=== PATIENT | male | born 1970 | race Caucasian/White ===

== ENCOUNTER 2020-03-22 04:47 | Emergency (ER) | payer OTHER ==
[2020-03-22 05:19] VITALS: PULSE 53
[2020-03-22] MEDS ORDERED: GELATIN SPONGE,ABSORB (SMALL) 1 EACH SPONGE TOPICAL STA (05:40)
[2020-03-22] MEDS ORDERED: DIPH,PERTUS(ACELL)TETVAC-LF 0.5 ML VIAL IM ONE (05:40)
--- NOTE | 2020-03-22 05:53 | ED ---
Wound/Laceration HPI - General Chief Complaint: Wound/Laceration Stated Complaint: thumb lac Time Seen by Provider: 03/22/20 05:39 Source: patient Mode of arrival: ambulatory Limitations: no limitations - History of Present Illness Initial Comments: 49yo male with no PMH presenting today for cc of right thumb avulsion. Pt states last night he was peeling beets when he sliced his thumb tip. States it continues to ooze blood. Patient states when bleeding persisted this morning he came in for bleeding control states no laceration for repair. Denies weakness, lightheaded, dizziness. Patient unsure of last tdap feels it is out of date. Appears well on arrival, no acute distress. - Related Data Home Medications Medication Instructions Recorded Confirmed Cetirizine HCl [Zyrtec] 10 mg PO DAILY 01/19/14 01/25/14 Fish Oil/Dha/Epa [Fish Oil 1,200 1 each PO DAILY 01/19/14 01/19/14 mg Fish Oil] Hydrocodone/Acetaminophen 1 each PO Q6HR PRN 01/19/14 01/25/14 [Hydrocodone/Acetaminophen 7.5-325] INSULIN ASPART (NovoLOG) [NovoLOG] 0 unit SQ DIRECTED 01/19/14 01/25/14 Ibuprofen [Advil] 200 mg PO Q8HR PRN 01/19/14 01/19/14 Multivitamins, Thera [Multivitamin] 1 each PO DAILY 01/19/14 01/19/14 Omeprazole [PriLOSEC] 20 mg PO AC-BRKFST 01/19/14 01/25/14 Previous Rx's Medication Instructions Recorded HYDROcodone/APAP 7.5-325MG [[address] 1 - 2 each PO Q6HR PRN #40 tab 01/25/14 7.5] Allergies Allergy/AdvReac Type Severity Reaction Status Date / Time Penicillins Allergy Unknown Rash/Hives Verified 03/22/20 05:20 naproxen sodium [From Aleve] AdvReac Unknown Abdominal Verified 03/22/20 05:20 Pain Review of Systems ROS Statement: Those systems with pertinent positive or pertinent negative responses have been documented in the HPI. ROS Other: All systems not noted in ROS Statement are negative. Past Medical History Past Medical History: Diabetes Mellitus, GERD/Reflux History of Any Multi-Drug Resistant Organisms: None Reported Past Surgical History: Orthopedic Surgery Additional Past Surgical History / Comment(s): ARTHROSCOPY RT SHOULDER Past Anesthesia/Blood Transfusion Reactions: No Reported Reaction, Motion Sickness Past Psychological History: No Psychological Hx Reported Smoking Status: Never smoker Past Alcohol Use History: None Reported Past Drug Use History: None Reported General Exam - General Exam Comments Initial Comments: General: The patient is awake and alert, in no distress, and does not appear acutely ill. Eye: Pupils are equal, round and reactive to light, extra-ocular movements are intact. No nystagmus. There is normal conjunctiva bilaterally. No signs of icterus. Musculoskeletal: Right thumb avulsion 3/4cm small bleeding capillary. Normal ROM, no tenderness. Strength 5/5. Sensation intact. Radial pulses equal bilaterally 2+. Neurological: A&O x 3. CN II-XII intact grossly, There are no obvious motor or sensory deficits. Coordination appears grossly intact. Speech is normal. Skin: Skin is warm and dry and no rashes or lesions are noted. Psychiatric: Cooperative, appropriate mood & affect, normal judgment. Limitations: no limitations Course Vital Signs 03/22/20 03/22/20 05:15 06:49 Temperature 97.8 F 97.4 F L Pulse Rate 53 L 53 L Respiratory 17 16 Rate Blood Pressure 116/74 114/74 O2 Sat by Pulse 100 98 Oximetry Medical Decision Making - Medical Decision Making 49yo female presenting to the ER for skin avulsion. gelfoam applied. Bleeding controlled on reevaluation. Asymptomatic. Patient tdap updated. Discharged with return parameters. Disposition Clinical Impression: Avulsion of skin of finger Disposition: HOME SELF-CARE Condition: Good Instructions (If sedation given, give patient instructions): Skin Avulsion (ED) Additional Instructions: Please use medication as discussed. Please follow-up with family doctor in the next 2 days. Please return to emergency room if the symptoms increase or worsen or for any other concerns. Is patient prescribed a controlled substance at d/c from ED?: No Referrals: None,Stated [Primary Care Provider] - 1-2 days Time of Disposition: 05:53
[2020-03-22] MEDS ORDERED: SILVER NITRATE APPLICATOR 1 EACH STICK..EA. TOPICAL STA (06:30)
[2020-03-22 06:52] VITALS: BP 114/74; RESP 16; TEMP 97.4
== END 2020-03-22 06:49 | disposition home or self-care (01) ==
LOC: EC 04:47
DX: S61.011A Laceration without foreign body of right thumb without damage to nail, initial encounter (principal); E11.9 Type 2 diabetes mellitus without complications; K21.9 Gastro-esophageal reflux disease without esophagitis; Z79.4 Long term (current) use of insulin; Z79.899 Other long term (current) drug therapy; Z88.0 Allergy status to penicillin; Z88.6 Allergy status to analgesic agent; Z23 Encounter for immunization; W27.4XXA Contact with kitchen utensil, initial encounter; Y93.G3 Activity, cooking and baking; Y92.009 Unspecified place in unspecified non-institutional (private) residence as the place of occurrence of the external cause
CPT/HCPCS: 90471; 90715; 99282

== ENCOUNTER → 2021-11-14 | Outpatient (CLI) | payer OTHER ==
[~2021-11-14] MED LIST: BEBTELOVIMAB (EUA) 175 MG/2 ML VIAL IV NR; SODIUM CHLORIDE 0.9% 500 ML 500 ML in EMPTY BAG 1 BAG IV PRN
[2021-11-14 13:24] VITALS: RESP 16
[2021-11-14 13:31] VITALS: TEMP 98.5
[2021-11-14 14:23] VITALS: BP 114/69; PULSE 65
== END ==
LOC: PROCWHC3 12:52
PROVIDERS: ATTEND Physician Assistant Medical
DX: U07.1 COVID-19 (principal); Z88.0 Allergy status to penicillin; Z88.8 Allergy status to other drugs, medicaments and biological substances; E10.9 Type 1 diabetes mellitus without complications; Z88.1 Allergy status to other antibiotic agents; Z91.041 Radiographic dye allergy status
CPT/HCPCS: Q0222; M0222; 96374

== ENCOUNTER → 2022-05-12 | Outpatient (CLI) | payer OTHER ==
[2022-05-12 13:12] LABS: African American GFR (CKD) 115.8 (60.0-200.0); Albumin 4.3 g/dL (3.8-4.9); Albumin/Globulin Ratio 2.15 (1.60-3.17); BUN/Creat Ratio 18.89 Ratio (12.00-20.00); Calcium 9.2 mg/dL (8.7-10.3); HDL Cholesterol 97.4 mg/dL (40.00-60.00); Non-African American GFR(CKD) 99.9 (60.0-200.0); Total Bilirubin 0.6 mg/dL (0.30-1.20); Total Protein 6.3 g/dL (6.2-8.2); Triglycerides 39.1 mg/dL (0.00-149.00)
[2022-05-12 13:22] LABS: Chol/HDL Ratio 2.22 Ratio
[2022-05-12 20:30] LABS: Microalbumin Creatinine Ratio <30 mg/g Creat (0-30)
== END | disposition home or self-care (01) ==
LOC: LABWHC1 08:11
PROVIDERS: ATTEND Internal Medicine Endocrinology, Diabetes & Metabolism
DX: E10.65 Type 1 diabetes mellitus with hyperglycemia (principal)
CPT/HCPCS: 36415; 80053; 80061; 82043; 82570; 83036; 83721; 84443

== ENCOUNTER → 2022-08-20 | Outpatient (CLI) | payer OTHER ==
[2022-08-20 11:18] LABS: ALT 20 U/L (10-49); AST 19 U/L (14-35); African American GFR (CKD) 115.8 (60.0-200.0); Albumin 4.2 g/dL (3.8-4.9); Alkaline Phosphatase 90 U/L (41-126); BUN/Creat Ratio 14.67 Ratio (12.00-20.00); Blood Urea Nitrogen 13.2 mg/dL (9.0-27.0); Carbon Dioxide 30.9 mmol/L (20.0-27.5); Chloride 102 mmol/L (96-109); Chol/HDL Ratio 2.42 Ratio; Glucose 217 mg/dL (70-110); LDL Cholesterol,Calculated 109.1 mg/dL (0.0-131.0); Non-African American GFR(CKD) 99.9 (60.0-200.0); Sodium 138 mmol/L (135-145); Total Protein 6.2 g/dL (6.2-8.2)
[2022-08-20 20:21] LABS: Microalbumin Creatinine Ratio <30 mg/g Creat (0-30)
== END | disposition home or self-care (01) ==
LOC: LABWHC1 07:46
PROVIDERS: ATTEND Internal Medicine Endocrinology, Diabetes & Metabolism
DX: E10.65 Type 1 diabetes mellitus with hyperglycemia (principal)
CPT/HCPCS: 36415; 80053; 80061; 82043; 82570; 83036; 84443

== ENCOUNTER → 2022-11-17 | Outpatient (CLI) | payer OTHER ==
[2022-11-17 13:31] LABS: ALT 29 U/L (10-49); AST 22 U/L (14-35); African American GFR (CKD) 109.2 (60.0-200.0); Albumin 4.6 g/dL (3.8-4.9); Albumin/Globulin Ratio 2.31 (1.60-3.17); Alkaline Phosphatase 119 U/L (41-126); BUN/Creat Ratio 21.27 Ratio (12.00-20.00); Blood Urea Nitrogen 20.1 mg/dL (9.0-27.0); Calcium 9.5 mg/dL (8.7-10.3); Carbon Dioxide 27.6 mmol/L (20.0-27.5); Chloride 105 mmol/L (96-109); Chol/HDL Ratio 2.28 Ratio; Glucose 157 mg/dL (70-110); LDL Cholesterol,Calculated 117.7 mg/dL (0.0-131.0); Non-African American GFR(CKD) 94.2 (60.0-200.0); Potassium 4.8 mmol/L (3.5-5.5); Sodium 140 mmol/L (135-145); Total Protein 6.6 g/dL (6.2-8.2); VLDL Calculation 8.98 mg/dL (5.00-40.00)
[2022-11-18 13:23] LABS: Microalbumin Creatinine Ratio <30 mg/g Creat (0-30)
== END | disposition home or self-care (01) ==
LOC: LABWHC1 09:07
PROVIDERS: ATTEND Internal Medicine Endocrinology, Diabetes & Metabolism
DX: E10.65 Type 1 diabetes mellitus with hyperglycemia (principal)
CPT/HCPCS: 36415; 80053; 80061; 82043; 82570; 83036; 84443

== ENCOUNTER 2023-07-20 12:22 | Emergency (ER) | payer OTHER ==
--- NOTE | 2023-07-20 12:30 | ED ---
General Adult HPI - General Stated complaint: Lt hand injury Time Seen by Provider: 07/20/23 12:28 Source: patient, RN notes reviewed - History of Present Illness Initial comments: 52 year old male presents to the emergency department for evaluation of left index finger injury. 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 Last tetanus around 3 years ago. He reports full range of motion to the finger. - Related Data Home Medications Medication Instructions Recorded Confirmed Cetirizine HCl [Zyrtec] 10 mg PO DAILY 01/19/14 11/14/21 Fish Oil/Dha/Epa [Fish Oil 1,200 1 each PO DAILY 01/19/14 11/14/21 mg Fish Oil] INSULIN ASPART (NovoLOG) [NovoLOG] 0 unit SQ DIRECTED 01/19/14 11/14/21 Multivitamins, Thera [Multivitamin] 1 each PO DAILY 01/19/14 11/14/21 Glucosamine Sulfate 1,000 mg PO DAILY 11/14/21 11/14/21 Niacin 500 mg PO BID 11/14/21 11/14/21 Allergies Allergy/AdvReac Type Severity Reaction Status Date / Time Penicillins Allergy Unknown Rash/Hives Verified 11/14/21 13:02 naproxen sodium [From Aleve] AdvReac Unknown Abdominal Verified 11/14/21 13:02 Pain cephalexin [From Keflex] AdvReac Abdominal Verified 11/14/21 13:03 Pain clarithromycin [From Biaxin] AdvReac Abdominal Verified 11/14/21 13:02 Pain Vfobilf-[id number]-FtX Reductase AdvReac Unknown Verified 11/14/21 13:03 Inhibitor lodine AdvReac Abdominal Uncoded 11/14/21 13:02 Pain Review of Systems ROS Statement: Those systems with pertinent positive or pertinent negative responses have been documented in the HPI. ROS Other: All systems not noted in ROS Statement are negative. Past Medical History Past Medical History: Diabetes Mellitus, GERD/Reflux History of Any Multi-Drug Resistant Organisms: None Reported Past Surgical History: Orthopedic Surgery Additional Past Surgical History / Comment(s): ARTHROSCOPY RT SHOULDER Past Anesthesia/Blood Transfusion Reactions: No Reported Reaction, Motion Sickness Past Psychological History: No Psychological Hx Reported Smoking Status: Never smoker Past Alcohol Use History: None Reported Past Drug Use History: None Reported General Exam - General Exam Comments Initial Comments: Visual Physical Exam Vital signs reviewed General: Well-appearing, nontoxic, no acute distress. Head: Normocephalic, atraumatic Eyes: PERRLA, EOMI ENT: Airway patent Chest: Nonlabored breathing Skin: No visual rash, normal skin tone Neuro: Alert and oriented 3 Musculoskeletal: No gross abnormalities Limitations: no limitations General appearance: alert, in no apparent distress Head exam: Present: atraumatic, normocephalic, normal inspection Eye exam: Present: normal appearance, PERRL, EOMI. Absent: scleral icterus, conjunctival injection, periorbital swelling ENT exam: Present: normal exam, mucous membranes moist Respiratory exam: Present: normal lung sounds bilaterally. Absent: respiratory distress, wheezes, rales, rhonchi, stridor Cardiovascular Exam: Present: regular rate, normal rhythm, normal heart sounds. Absent: systolic murmur, diastolic murmur, rubs, gallop, clicks Extremities exam: Present: full ROM, normal capillary refill, other (Left second digit) Neurological exam: Present: alert, oriented X3 Psychiatric exam: Present: normal affect, normal mood Skin exam: Present: warm, dry, other (1 centimeter laceration to the lateral aspect second digit of the left hand). Absent: intact Course Vital Signs 07/20/23 12:27 Temperature 98 F Pulse Rate 63 Respiratory 16 Rate Blood Pressure 135/81 O2 Sat by Pulse 98 Oximetry Procedures - Laceration Laceration #1 Consent Obtained: verbal consent Indication: laceration Site: hand Size (cm): 1 Description: linear Depth: simple, single layer Anesthetic Used: lidocaine 1% Anesthesia Technique: local infiltration Pre-repair: wound explored, irrigated extensively Type of Sutures: other Size of Sutures: 5-0 Number of Sutures: 2 Technique: simple, interrupted Patient Tolerated Procedure: well, no complications Medical Decision Making - Medical Decision Making Was pt. sent in by a medical professional or institution (, [place], [employer], urgent care, hospital, or senior care...) When possible be specific @ -No Did you speak to anyone other than the patient for history (EMS, parent, family, police, friend...)? What history was obtained from this source @ -No Did you review nursing and triage notes (agree or disagree)? Why? @ -I reviewed and agree with nursing and triage notes Were old charts reviewed (outside hosp., previous admission, EMS record, old EKG, old radiological studies, urgent care reports/EKG's, senior care records)? Report findings @ -No old charts were reviewed Differential Diagnosis (chest pain, altered mental status, abdominal pain women, abdominal pain men, vaginal bleeding, weakness, fever, dyspnea, syncope, headache, dizziness, GI bleed, back pain, seizure, CVA, palpatations, mental health, musculoskeletal)? @ -Differential Musculoskeletal Muscular strain, contusion, ligament sprain, fracture, arthritis, septic arthritis, bursitis, cellulitis, muscle spasm, nerve compression, DVT, arterial occlusion, herpes zoster, electrolyte abnormality, tumor.... This is not meant to be in all inclusive list EKG interpreted by me (3pts min.). @ -None X-rays interpreted by me (1pt min.). @ -X-ray of the left second digit shows no acute fracture or foreign body CT interpreted by me (1pt min.). @ -None done U/S interpreted by me (1pt. min.). @ -None done What testing was considered but not performed or refused? (CT, X-rays, U/S, labs)? Why? @ -None What meds were considered but not given or refused? Why? @ -None Did you discuss the management of the patient with other professionals (professionals i.e. , PA, [employer], lab, RT, psych nurse, social media specialist, building drafting officer, teacher, medical information officer, rn field case manager)? Give summary @ -No Was smoking cessation discussed for >3mins.? @ -No Was critical care preformed (if so, how long)? @ -No Were there social determinants of health that impacted care today? How? (Homelessness, low income, unemployed, alcoholism, drug addiction, transportation, low edu. Level, literacy, decrease access to med. care, halfway, rehab)? @ -No Was there de-escalation of care discussed even if they declined (Discuss DNR or withdrawal of care, Hospice)? DNR status @ -No What co-morbidities impacted this encounter? (DM, HTN, Smoking, COPD, CAD, Cancer, CVA, ARF, Chemo, Hep., AIDS, mental health diagnosis, sleep apnea, morbid obesity)? @ -None Was patient admitted / discharged? Hospital course, mention meds given and route, prescriptions, significant lab abnormalities, going to OR and other pertinent info. @ -Charge. Patient presented to the emergency department for laceration of left second digit. Wound was irrigated and 2 sutures were placed. X-ray obtained shows no acute fracture or foreign body. Advised patient on wound care. Patient up-to-date on his tetanus vaccination. Patient discharged home. Case discussed with Dr. Matamoros Undiagnosed new problem with uncertain prognosis? @ -No Drug Therapy requiring intensive monitoring for toxicity (Heparin, Nitro, Insulin, Cardizem)? @ -No Were any procedures done? @ -No Diagnosis/symptom? @ -laceration Acute, or Chronic, or Acute on Chronic? @ -acute Uncomplicated (without systemic symptoms) or Complicated (systemic symptoms)? @ uncomplicated Side effects of treatment? @ -No Exacerbation, Progression, or Severe Exacerbation? @ -No Poses a threat to life or bodily function? How? (Chest pain, [place], PA, pneumonia, PE, COPD, DKA, ARF, appy, cholecystitis, CVA, Diverticulitis, Homicidal, Suicidal, threat to staff... and all critical care pts) @ -No Disposition Clinical Impression: Laceration Disposition: HOME SELF-CARE Condition: Stable Instructions (If sedation given, give patient instructions): Care For Your S titches (ED) Additional Instructions: Please have sutures removed in 7-10 days. Keep wound clean and dry. Follow up with your primary care provider. Return to the emergency department for new or worsening symptoms. Is patient prescribed a controlled substance at d/c from ED?: No Referrals: None,Stated [Primary Care Provider] - 1-2 days
[2023-07-20 12:42] VITALS: BP 135/81; PULSE 63; RESP 16; TEMP 98
--- NOTE | 2023-07-20 13:17 | XR ---
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 COMPARISON: None TECHNIQUE: XR finger LT Frontal, lateral and oblique views were obtained. FINDINGS: Normal alignment of the visualized joints. No acute osseous pathology is identified. No e vidence of soft tissue swelling. No radiopaque foreign body. IMPRESSION: No acute osseous pathology. No radiopaque foreign body.
[2023-07-20] MEDS ORDERED: LIDOCAINE 1% INJ 10MG/ML (20 ML MDV) SQ ONE (13:26)
== END 2023-07-20 14:17 | disposition home or self-care (01) ==
LOC: EC 12:22
DX: S61.211A Laceration without foreign body of left index finger without damage to nail, initial encounter (principal); E11.9 Type 2 diabetes mellitus without complications; Z79.4 Long term (current) use of insulin; Z79.899 Other long term (current) drug therapy; Z88.0 Allergy status to penicillin; Z88.5 Allergy status to narcotic agent; Z88.8 Allergy status to other drugs, medicaments and biological substances; W26.9XXA Contact with unspecified sharp object(s), initial encounter
CPT/HCPCS: 73140; 99283; 12001; J2001

== ENCOUNTER → 2023-08-17 | Outpatient (CLI) | payer OTHER ==
[2023-08-17 13:33] LABS: ALT 19 U/L (10-49); AST 18 U/L (14-35); Albumin 4.5 g/dL (3.8-4.9); Albumin/Globulin Ratio 2.25 Ratio (1.60-3.17); Alkaline Phosphatase 80 U/L (41-126); Blood Urea Nitrogen 15.3 mg/dL (9.0-27.0); Calcium 9.8 mg/dL (8.7-10.3); Carbon Dioxide 27.2 mmol/L (21.6-31.8); Chloride 101 mmol/L (96-109); Chol/HDL Ratio 2.53 Ratio; Glucose 194 mg/dL (70-110); Potassium 4.7 mmol/L (3.5-5.5); Sodium 140 mmol/L (135-145); Total Bilirubin 0.5 mg/dL (0.3-1.2); Total Protein 6.5 g/dL (6.2-8.2); VLDL Calculation 10.98 mg/dL (5.00-40.00)
[2023-08-17 15:11] LABS: Microalbumin Creatinine Ratio <9 mg/g Cr (0-30)
== END | disposition home or self-care (01) ==
LOC: LABWHC1 08:10
PROVIDERS: ATTEND Internal Medicine Endocrinology, Diabetes & Metabolism
DX: E10.65 Type 1 diabetes mellitus with hyperglycemia (principal)
CPT/HCPCS: 36415; 80053; 80061; 82043; 82570; 83036; 84443

== ENCOUNTER → 2023-10-17 | Outpatient (CLI) | payer OTHER ==
--- NOTE | 2023-10-17 12:38 | MR ---
EXAMINATION TYPE: MR shoulder LT wo con DATE OF EXAM: 10/17/2023 COMPARISON: None HISTORY: Lt shoulder pain TECHNIQUE: Multiplanar, multisequence imaging of the left shoulder is performed without contrast. FINDINGS: Rotator Cuff: There is no evidence of through thickness tear or retraction of the visualized rotator cuff tendons. There is very minimal undersurface signal along the distal margin of the infraspinatus tendon referen ce coronal image 18 compatible with mild tendinosis. The subscapularis tendons have a normal appearance. There is intermediate signal seen involving the distal margin of the supraspinatus tendon extending t he length of 1 cm in width of 9 mm compatible with tendinosis. Trace amount of fluid in the subacromi al subdeltoid bursa. Acromioclavicular Joint: Mild hypertrophic arthropathy. There does appear to be mild impingement and mass effect upon the supraspinatus tendon and muscle. Glenohumeral Joint: Joint space is preserved and there is no sizable joint effusion. There is thicken ing and ill definition of the inferior glenohumeral ligament. Labrum: The labrum appears grossly intact given limitation of non-arthrogram study. Biceps Tendon: The long head of biceps is in normal location within bicipital groove. Increased fluid surrounding the tendon can be associated with tendinosis. Bone marrow signal: No focal abnormal marrow signal is appreciated. IMPRESSION: 1. There is a moderate tendinosis of the distal 1 cm supraspinatus tendon with no evidence of through thickness tear or retraction. 2. Mild impingement secondary to AC joint arthropathy. 3. Mild thickening and ill definition of the inferior glenohumeral ligament. Can be associated with l igamentous strain or occasionally with adhesive capsulitis. 4. Mild bicipital tendinosis.
== END | disposition home or self-care (01) ==
LOC: RADMRIMAIN 10:16
PROVIDERS: ATTEND Orthopaedic Surgery Hand Surgery
DX: M67.814 Other specified disorders of tendon, left shoulder (principal); M19.012 Primary osteoarthritis, left shoulder; M25.812 Other specified joint disorders, left shoulder; M75.42 Impingement syndrome of left shoulder

== ENCOUNTER → 2023-12-03 | Outpatient (CLI) | payer OTHER ==
[2023-12-03 14:46] LABS: ALT 25 U/L (10-49); AST 24 U/L (14-35); Albumin 4.7 g/dL (3.8-4.9); Albumin/Globulin Ratio 2.14 Ratio (1.60-3.17); Alkaline Phosphatase 91 U/L (41-126); BUN/Creat Ratio 23.22 Ratio (12.00-20.00); Blood Urea Nitrogen 20.9 mg/dL (9.0-27.0); Calcium 9.7 mg/dL (8.7-10.3); Carbon Dioxide 29.2 mmol/L (21.6-31.8); Chloride 103 mmol/L (96-109); Chol/HDL Ratio 2.38 Ratio; Globulin 2.2 g/dL (1.6-3.3); Glucose 64 mg/dL (70-110); LDL Cholesterol,Calculated 122.5 mg/dL (0.0-131.0); Potassium 4.9 mmol/L (3.5-5.5); Sodium 141 mmol/L (135-145); Total Bilirubin 0.3 mg/dL (0.3-1.2); Total Protein 6.9 g/dL (6.2-8.2)
[2023-12-03 19:59] LABS: Microalbumin Creatinine Ratio <8 mg/g Cr (0-30)
== END | disposition home or self-care (01) ==
LOC: LABWHC1 07:09
PROVIDERS: ATTEND Internal Medicine Endocrinology, Diabetes & Metabolism
DX: E10.65 Type 1 diabetes mellitus with hyperglycemia (principal)
CPT/HCPCS: 36415; 80053; 80061; 82043; 82570; 83036; 84443

== ENCOUNTER → 2024-03-21 | Outpatient (CLI) | payer OTHER ==
[2024-03-21 13:48] LABS: BUN/Creat Ratio 21.78 Ratio (12.00-20.00); Blood Urea Nitrogen 19.6 mg/dL (9.0-27.0); Chol/HDL Ratio 2.03 Ratio; Glucose 99 mg/dL (70-110)
[2024-03-21 13:49] LABS: ALT 21 U/L (10-49); AST 21 U/L (14-35); Albumin 4.4 g/dL (3.8-4.9); Albumin/Globulin Ratio 2.44 Ratio (1.60-3.17); Alkaline Phosphatase 85 U/L (41-126); Calcium 9.3 mg/dL (8.7-10.3); Carbon Dioxide 26.4 mmol/L (21.6-31.8); Chloride 105 mmol/L (96-109); Globulin 1.8 g/dL (1.6-3.3); Potassium 4.9 mmol/L (3.5-5.5); Sodium 140 mmol/L (135-145); Total Bilirubin 0.6 mg/dL (0.3-1.2); Total Protein 6.2 g/dL (6.2-8.2)
[2024-03-21 15:30] LABS: Microalbumin Creatinine Ratio <9 mg/g Cr (0-30)
== END | disposition home or self-care (01) ==
LOC: LABWHC1 07:53
PROVIDERS: ATTEND Internal Medicine Endocrinology, Diabetes & Metabolism
DX: E10.65 Type 1 diabetes mellitus with hyperglycemia (principal)
CPT/HCPCS: 36415; 80053; 80061; 82043; 82570; 83036; 84443

== ENCOUNTER 2024-04-14 17:49 | Emergency (ER) | payer OTHER ==
--- NOTE | 2024-04-14 18:40 | ED ---
Eye Problem HPI - General Source: patient, RN notes reviewed Mode of arrival: ambulatory Limitations: no limitations <Mackenzie uGzman - Last Filed: 04/14/24 18:39> <Roberto Matamoros - Last Filed: 04/15/24 01:31> <Jaida Hitchcock - Last Filed: 04/18/24 16:49> - General Chief complaint: Eye Problems Stated complaint: double vision Time Seen by Provider: 04/14/24 18:01 - History of Present Illness Initial comments: Quick [id number] male with a history of type 1 diabetes on insulin pump presents emergency department chief complaint of intermittent blurry and double vision. Patient states that symptoms began on Saturday night. He states that the right eye has been consistently blurry today and he is experiencing pain behind the right eye as well. Denies chest pain, shortness of breath, difficulty rashawn thing. (Mackenzie Guzman) Patient is a pleasant 53-year-old male presenting today for 3 days of intermittent blurry vision. Patient states Saturday night he was watching TV and he noticed his vision go blurry. Came on gradually, happened to both eyes. Patient went to sleep and improved in the morning however throughout the day on Saturday and Saturday he intermittently experienced double vision and blurry vision. Today the blurry vision persisted throughout the day instead of coming and going and he began to notice pressure above his right eye. He denies pain with extraocular movements, foreign body sensation, trauma, headache, changes in vision, slurred speech, numbness or weakness, chest pain or trouble breathing, fevers. Patient has been monitoring his blood sugar and states his blood sugars have been well-controlled. Patient states his blood pressure and it was normal. (Jaida Hitchcock) - Related Data Home Medications Medication Instructions Recorded Confirmed Cetirizine HCl [Zyrtec] 10 mg PO DAILY 01/19/14 11/14/21 Fish Oil/Dha/Epa [Fish Oil 1,200 1 each PO DAILY 01/19/14 11/14/21 mg Fish Oil] INSULIN ASPART (NovoLOG) [NovoLOG] 0 unit SQ DIRECTED 01/19/14 11/14/21 Multivitamins, Thera [Multivitamin] 1 each PO DAILY 01/19/14 11/14/21 Glucosamine Sulfate 1,000 mg PO DAILY 11/14/21 11/14/21 Niacin 500 mg PO BID 11/14/21 11/14/21 Allergies Allergy/AdvReac Type Severity Reaction Status Date / Time Penicillins Allergy Unknown Rash/Hives Verified 04/14/24 17:53 naproxen sodium [From Aleve] AdvReac Unknown Abdominal Verified 04/14/24 17:53 Pain cephalexin [From Keflex] AdvReac Abdominal Verified 04/14/24 17:53 Pain clarithromycin [From Biaxin] AdvReac Abdominal Verified 04/14/24 17:53 Pain [id number] Reductase AdvReac Unknown Verified 04/14/24 17:53 Inhibitor lodine AdvReac Abdominal Uncoded 04/14/24 17:53 Pain Review of Systems ROS Other: All systems not noted in ROS Statement are negative. <Mackenzie Guzman - Last Filed: 04/14/24 18:39> ROS Other: All systems not noted in ROS Statement are negative. <Roberto Matamoros - Last Filed: 04/15/24 01:31> ROS Other: All systems not noted in ROS Statement are negative. <Jaida Hitchcock - Last Filed: 04/18/24 16:49> ROS Statement: Those systems with pertinent positive or pertinent negative responses have been documented in the HPI. Past Medical History Past Medical History: Diabetes Mellitus, GERD/Reflux History of Any Multi-Drug Resistant Organisms: None Reported Past Surgical History: Orthopedic Surgery Additional Past Surgical History / Comment(s): ARTHROSCOPY RT SHOULDER Past Anesthesia/Blood Transfusion Reactions: No Reported Reaction, Motion Sickness Past Psychological History: No Psychological Hx Reported Smoking Status: Never smoker Past Alcohol Use History: None Reported Past Drug Use History: None Reported <Mackenzie Guzman - Last Filed: 04/14/24 18:39> General Exam Limitations: no limitations <Mackenzie Guzman - Last Filed: 04/14/24 18:39> <Jaida Hitchcock - Last Filed: 04/18/24 16:49> - General Exam Comments Initial Comments: Visual Physical Exam Vital signs reviewed General: Well-appearing, nontoxic, no acute distress. Head: Normocephalic, atraumatic Eyes: PERRLA, EOMI ENT: Airway patent Chest: Nonlabored breathing Skin: No visual rash, normal skin tone Neuro: Alert and oriented 3 Musculoskeletal: No gross abnormalities (Mackenzie Guzman) PE: CONSTITUTIONAL: No apparent distress, well appearing SKIN: Warm, dry, no jaundice, hives or petechiae EYES: Pupils are equally round, extraocular movements intact without nystagmus, clear conjunctiva, non-icteric sclera, brisk pupillary response, optic discs margins are sharp, no retinal hemorrhages, visual vance grossly intact HENT: Normocephalic, atraumatic, moist mucus membranes, oropharynx clear without exudates; no temporal artery TTP NECK: , Full range of motion, normal appearance PULMONARY: Clear to auscultation without wheezes, rhonchi, or rales, normal excursion, no accessory muscle use and no stridor CARDIOVASCULAR: Regular rate, rhythm, normal S1 and S2. No appreciated murmurs, rubs or gallops. GASTROINTESTINAL: Soft, non-tender, non-distended, no palpable masses, no rebound or guarding. No hepatosplenomegaly MUSCULOSKELETAL: Extremities have no gross deformity, no edema, redness, or swelling.. NEUROLOGIC:_a/o x 3, GCS 15, normal mentation and speech. Moves all extremities x 4 without motor or sensory deficit; cranial nerves: II (visual vance without defects), III, IV and (extraocular movements are intact, pupils are equal with normal reaction to light), V (intact facial sensation and jaw opening), VII (no facial droop), IX and X (normal palate movement, midline uvula, normal voice), XI (symmetrical shoulder shrug), XII (midline tongue protrusion). Motor strength is 5/5 in all extremities. No abnormal movements. Normal muscle tone. Sensation to light touch is intact bilaterally. PSYCHIATRIC:_normal mood and affect, thought process is clear and linear (Jaida Hitchcock) Course Vital Signs 04/14/24 04/14/24 04/15/24 17:50 23:27 01:37 Temperature 98.7 F 97.6 F Pulse Rate 57 L 48 L 56 L Respiratory 16 18 18 Rate Blood Pressure 130/68 125/70 126/72 O2 Sat by Pulse 98 100 98 Oximetry Medical Decision Making <Mackenzie Guzman - Last Filed: 04/14/24 18:39> - Lab Data Result diagrams: 04/14/24 20:48 04/14/24 20:48 <Roberto Matamoros - Last Filed: 04/15/24 01:31> - Lab Data Result diagrams: 04/14/24 20:48 04/14/24 20:48 <Jaida Hitchcock - Last Filed: 04/18/24 16:49> - Medical Decision Making I completed the quick note portion of this chart signed Mackenzie Guzman PA-C (Mackenzie Guzman) Patient care signed out awaiting CT angiography results. Patient is very eager for discharge. He is standing in the hallway asking to be discharged. He should follow-up with ophthalmology regarding symptoms. (Roberto Matamoros) Was pt. sent in by a medical professional or institution ([facility], SILO OPERATOR, urgent care, hospital, or prison...) When possible be specific @ -No Did you speak to anyone other than the patient for history (EMS, parent, family, police, friend...)? What history was obtained from this source @ -No Did you review nursing and triage notes (agree or disagree)? Why? @ -I reviewed and agree with nursing and triage notes Were old charts reviewed (outside hosp., previous admission, EMS record, old EKG, old radiological studies, urgent care reports/EKG's, prison records)? Report findings @ Reviewed old charts Differential Diagnosis (chest pain, altered mental status, abdominal pain women, abdominal pain men, vaginal bleeding, weakness, fever, dyspnea, syncope, headache, dizziness, GI bleed, back pain, seizure, CVA, palpatations, mental health, musculoskeletal)? Differential diagnosis manage top considerations include hyperglycemia, electrolyte imbalance, central retinal artery occlusion, glaucoma, temporal arteritis this is not all-inclusive list EKG interpreted by me (3pts min.). @ -Sinus bradycardia, rate 52 bpm, HI interval 186 ms, QRS duration 108 ms, QT/QTc 444/424 ms, normal axis, no ST elevations or depressions, no arrhythmia X-rays interpreted by me (1pt min.). @ -None done CT interpreted by me (1pt min.). @ -CT brain without masses or hemorrhage U/S interpreted by me (1pt. min.). @ -None done What testing was considered but not performed or refused? (CT, X-rays, U/S, labs)? Why? @ -None What meds were considered but not given or refused? Why? @ -Consider Tylenol or ibuprofen for head pressure however patient plate declined pain Did you discuss the management of the patient with other professionals (professionals i.e. , PA, SILO OPERATOR, lab, RT, psych nurse, rn social work, criminal defense lawyer, teacher, financial compliance officer, case reviewer)? Give summary @ -No Was smoking cessation discussed for >3mins.? @ -No Was critical care preformed (if so, how long)? @ -No Were there social determinants of health that impacted care today? How? (Homelessness, low income, unemployed, alcoholism, drug addiction, transportation, low edu. Level, literacy, decrease access to med. care, penitentiary, rehab)? @ -No Was there de-escalation of care discussed even if they declined (Discuss DNR or withdrawal of care, Hospice)? @ -No What co-morbidities impacted this encounter? (DM, HTN, Smoking, COPD, CAD, Cancer, CVA, ARF, Chemo, Hep., AIDS, mental health diagnosis, sleep apnea, morbid obesity)? @ -DM Was patient admitted / discharged? Hospital course, mention meds given and route, prescriptions, significant lab abnormalities, going to OR and other pertinent info. @ - Patient is a pleasant 53-year-old gentleman past medical history type 1 diabetes presenting for 3 days of blurry vision that has become more persistent today worse in the right eye. CT brain obtained as part of triage protocol negative for process acute process or hemorrhage. On my evaluation patient is well-appearing and in no acute distress. Visual grossly intact, pupils are equal round reactive to light, briskly reactive, no retinal hemorrhage, optic discharge sharp, intraocular pressure of the right eye 15, intraocular pressure left eye 14, plan for CBC, CMP, urinalysis to assess for signs of hyperglycemia, EKG to ensure no arrythmia, CTA brain, CRP, ESR. Visual acuity testing. Pt agreeable with plan. Labs reviewed. Significant for WBC count 3.4. Otherwise, grossly within normal limits. Abnormal values not concerning for acute pathology related to presenting complaint. Pt signed out to oncoming physician, Dr. Matamoros, pending CTA. Diagnosis/symptom? @ Visual field changes Acute, or Chronic, or Acute on Chronic? @ Acute Uncomplicated (without systemic symptoms) or Complicated (systemic symptoms)? @ -Uncomplicated Side effects of treatment? @ -No Exacerbation, Progression, or Severe Exacerbation? @ -No Poses a threat to life or bodily function? How? (Chest pain, [place], [place], pneumonia, PE, COPD, DKA, ARF, appy, cholecystitis, CVA, Diverticulitis, Homicidal, Suicidal, threat to staff... and all critical care pts) @ Potentially (Jaida Hitchcock) - Lab Data Lab Results 04/14/24 04/14/24 04/14/24 Range/Units 20:48 20:48 20:48 WBC 3.4 L (3.8-10.6) k/uL RBC 4.26 L (4.30-5.90) m/uL Hgb 13.5 (13.0-17.5) gm/dL Hct 40.2 (39.0-53.0) % MCV 94.3 (80.0-100.0) fL MCH 31.7 (25.0-35.0) pg MCHC 33.6 (31.0-37.0) g/dL RDW 12.4 (11.5-15.5) % Plt Count 178 (150-450) k/uL MPV 7.1 Neutrophils % 37 % Lymphocytes % 49 % Monocytes % 5 % Eosinophils % 5 % Basophils % 1 % Neutrophils # 1.3 (1.3-7.7) k/uL Lymphocytes # 1.7 (1.0-4.8) k/uL Monocytes # 0.2 (0-1.0) k/uL Eosinophils # 0.2 (0-0.7) k/uL Basophils # 0.0 (0-0.2) k/uL ESR 3 (0-20) mm/Hr PT 10.9 (10.0-12.5) sec INR 1.0 (<1.2) APTT 24.4 (22.0-30.0) sec Sodium 138 (137-145) mmol/L Potassium 4.5 (3.5-5.1) mmol/L Chloride 103 (98-107) mmol/L Carbon Dioxide 31 H (22-30) mmol/L Anion Gap 4 mmol/L BUN 18 (9-20) mg/dL Creatinine 0.79 (0.66-1.25) mg/dL Est GFR (CKD-EPI)AfAm >90 (>60 ml/min/1.73 sqM) Est GFR (CKD-EPI)NonAf >90 (>60 ml/min/1.73 sqM) Glucose 111 H (74-99) mg/dL Calcium 9.6 (8.4-10.2) mg/dL Total Bilirubin 0.7 (0.2-1.3) mg/dL AST 24 (17-59) U/L ALT 19 (4-49) U/L Alkaline Phosphatase 83 (38-126) U/L C-Reactive Protein <0.5 (<1.0) mg/dL Total Protein 6.8 (6.3-8.2) g/dL Albumin 4.4 (3.5-5.0) g/dL Urine Color Urine Appearance (Clear) Urine pH (5.0-8.0) Ur Specific [place] (1.001-1.035) Urine Protein (Negative) Urine Glucose (UA) (Negative) Urine Ketones (Negative) Urine Blood (Negative) Urine Nitrite (Negative) Urine Bilirubin (Negative) Urine Urobilinogen (<2.0) mg/dL Ur Leukocyte Esterase (Negative) 04/14/24 Range/Units 20:51 WBC (3.8-10.6) k/uL RBC (4.30-5.90) m/uL Hgb (13.0-17.5) gm/dL Hct (39.0-53.0) % MCV (80.0-100.0) fL MCH (25.0-35.0) pg MCHC (31.0-37.0) g/dL RDW (11.5-15.5) % Plt Count (150-450) k/uL MPV Neutrophils % % Lymphocytes % % Monocytes % % Eosinophils % % Basophils % % Neutrophils # (1.3-7.7) k/uL Lymphocytes # (1.0-4.8) k/uL Monocytes # (0-1.0) k/uL Eosinophils # (0-0.7) k/uL Basophils # (0-0.2) k/uL ESR (0-20) mm/Hr PT (10.0-12.5) sec INR (<1.2) APTT (22.0-30.0) sec Sodium (137-145) mmol/L Potassium (3.5-5.1) mmol/L Chloride (98-107) mmol/L Carbon Dioxide (22-30) mmol/L Anion Gap mmol/L BUN (9-20) mg/dL Creatinine (0.66-1.25) mg/dL Est GFR (CKD-EPI)AfAm (>60 ml/min/1.73 sqM) Est GFR (CKD-EPI)NonAf (>60 ml/min/1.73 sqM) Glucose (74-99) mg/dL Calcium (8.4-10.2) mg/dL Total Bilirubin (0.2-1.3) mg/dL AST (17-59) U/L ALT (4-49) U/L Alkaline Phosphatase (38-126) U/L C-Reactive Protein (<1.0) mg/dL Total Protein (6.3-8.2) g/dL Albumin (3.5-5.0) g/dL Urine Color Yellow Urine Appearance Clear (Clear) Urine pH 5.5 (5.0-8.0) Ur Specific [place] 1.027 (1.001-1.035) Urine Protein Negative (Negative) Urine Glucose (UA) Negative (Negative) Urine Ketones Trace H (Negative) Urine Blood Negative (Negative) Urine Nitrite Negative (Negative) Urine Bilirubin Negative (Negative) Urine Urobilinogen <2.0 (<2.0) mg/dL Ur Leukocyte Esterase Negative (Negative) Disposition <Mackenzie Guzman - Last Filed: 04/14/24 18:39> Is patient prescribed a controlled substance at d/c from ED?: No Time of Disposition: 01:31 <Roberto Matamoros - Last Filed: 04/15/24 01:31> <Jaida Hitchcock - Last Filed: 04/18/24 16:49> Clinical Impression: Blurred vision Disposition: HOME SELF-CARE Condition: Good Instructions (If sedation given, give patient instructions): Blurred Vision (ED) Referrals: None,Stated [Primary Care Provider] - 1-2 days Cl Mercado MD [STAFF PHYSICIAN] - 1-2 days
--- NOTE | 2024-04-14 19:50 | CT ---
EXAMINATION TYPE: CT brain wo con DATE OF EXAM: 04/14/2024 COMPARISON: None INDICATION: Visual disturbances, right eye/head pain. DLP: 1184.4 mGycm, Automated exposure control for dose reduction was used. CONTRAST: None CT of the brain is performed utilizing 3 mm thick sections through the posterior fossa and 3 mm thick sections through the remaining calvarium. Study is performed within 24 hours of arrival to the hosp [place]. No abnormal hyperdensity is present to suggest an acute intracranial hemorrhage. No mass lesion is evident. No acute infarcts are evident. Ventricles and sulci are appropriate for the patient age. Paranasal sinuses and mastoid air cells within the [id number] are clear. IMPRESSION: 1. No acute intracranial process. Follow up MRI can be performed as clinically indicated. [facility], , 04/14/2024 7:48 PM
[2024-04-14 21:12] LABS: Basophils % (A) 1 %; Eosinophils # (A) 0.2 k/uL (0-0.7); Eosinophils % (A) 5 %; HCT 40.2 % (39.0-53.0); HGB 13.5 gm/dL (13.0-17.5); Lymphocytes # (A) 1.7 k/uL (1.0-4.8); Lymphocytes % (A) 49 %; MCH 31.7 pg (25.0-35.0); MCHC 33.6 g/dL (31.0-37.0); MCV 94.3 fL (80.0-100.0); Mean Platelet Volume 7.1; Monocytes # (A) 0.2 k/uL (0-1.0); Monocytes % (A) 5 %; Neutrophils # (A) 1.3 k/uL (1.3-7.7); Neutrophils % (A) 37 %; Platelet Count 178 k/uL (150-450); RBC 4.26 m/uL (4.30-5.90); RDW 12.4 % (11.5-15.5); WBC 3.4 k/uL (3.8-10.6)
[2024-04-14 21:15] LABS: Appearance,Urine Clear (Clear); Bilirubin,Urine Negative (Negative); Blood,Urine Negative (Negative); Color,Urine Yellow; Glucose,Urine (UA) Negative (Negative); Ketones,Urine Trace (Negative); Leukocyte Esterase,Urine Negative (Negative); Nitrite,Urine Negative (Negative); PH, Urine 5.5 (5.0-8.0); Protein,Urine Negative (Negative); Specific Gravity,Urine 1.027 (1.001-1.035); Urobilinogen,Urine <2.0 mg/dL (<2.0)
[2024-04-14 21:26] LABS: Partial Thromboplastin Time 24.4 sec (22.0-30.0); Prothrombin Time 10.9 sec (10.0-12.5)
[2024-04-14 22:11] LABS: ALT 19 U/L (4-49); AST 24 U/L (17-59); African American GFR (CKD) >90 (>60 ml/min/1.73 sqM); Albumin 4.4 g/dL (3.5-5.0); Alkaline Phosphatase 83 U/L (38-126); Anion Gap 4 mmol/L; Blood Urea Nitrogen 18 mg/dL (9-20); Calcium 9.6 mg/dL (8.4-10.2); Carbon Dioxide 31 mmol/L (22-30); Chloride 103 mmol/L (98-107); Glucose 111 mg/dL (74-99); Non-African American GFR(CKD) >90 (>60 ml/min/1.73 sqM); Potassium 4.5 mmol/L (3.5-5.1); Sodium 138 mmol/L (137-145); Total Bilirubin 0.7 mg/dL (0.2-1.3); Total Protein 6.8 g/dL (6.3-8.2)
[2024-04-14 22:49] LABS: C Reactive Protein <0.5 mg/dL (<1.0)
[2024-04-14 23:30] VITALS: RESP 18
--- NOTE | 2024-04-15 01:30 | CT ---
EXAM: CT Angiography Head With Intravenous Contrast CLINICAL HISTORY: ITS.REASON CT Reason: subacute blurry vision, R>L, pressure right eye TECHNIQUE: Axial computed tomographic angiography images of the head with intravenous contrast. CTDI is 18.03 mGy and DLP is 251.1 mGy-cm. This CT exam was performed using one or more of the following dose reduction techniques: automated exposure control, adjustment of the mA and/or kV according to patient size, and/or use of iterative reconstruction technique. MIP reconstructed images were created and reviewed. COMPARISON: No relevant prior studies available. FINDINGS: The dural venous sinuses are patent. Right internal carotid artery: No acute findings. Intracranial segment is patent with no significant stenosis. No aneurysm. Right anterior cerebral artery: Unremarkable. No occlusion or significant stenosis. No aneurysm. Right middle cerebral artery: Unremarkable. No occlusion or significant stenosis. No aneurysm. Right posterior cerebral artery: Unremarkable. No occlusion or significant stenosis. No aneurysm. Right vertebral artery: Hypoplastic. Left internal carotid artery: No acute findings. Intracranial segment is patent with no significant stenosis. No aneurysm. Left anterior cerebral artery: Unremarkable. No occlusion or significant stenosis. No aneurysm. Left middle cerebral artery: Unremarkable. No occlusion or significant stenosis. No aneurysm. Left posterior cerebral artery: Unremarkable. No occlusion or significant stenosis. No aneurysm. Left vertebral artery: Unremarkable as visualized. Basilar artery: Unremarkable. No occlusion or significant stenosis. No aneurysm. IMPRESSION: Negative CT angiogram of the head. EXAM: CT Angiography Neck With Intravenous Contrast CLINICAL HISTORY: ITS.REASON CT Reason: subacute blurry vision, R>L, pressure right eye TECHNIQUE: Routine carotid CT angiography protocol was performed with intravenous contrast. NASCET criteria using the distal ICAs for comparison were used for evaluation of stenoses. CTDI is 18.03 mGy and DLP is 251.1 mGy-cm. This CT exam was performed using one or more of the following dose reduction techniques: automated exposure control, adjustment of the mA and/or kV according to patient size, and/or use of iterative reconstruction technique. MIP reconstructed images were created and reviewed. COMPARISON: None. FINDINGS: VASCULATURE: Right common carotid artery: Unremarkable. No occlusion or significant stenosis. No dissection. Right internal carotid artery: Unremarkable. Extracranial segment is patent with no occlusion or significant stenosis. No dissection. Right external carotid artery: Unremarkable. No occlusion. Right vertebral artery: Unremarkable. No occlusion or significant stenosis. No dissection. Left common carotid artery: Unremarkable. No occlusion or significant stenosis. No dissection. Left internal carotid artery: Unremarkable. Extracranial segment is patent with no occlusion or significant stenosis. No dissection. Left external carotid artery: Unremarkable. No occlusion. Left vertebral artery: Unremarkable. No occlusion or significant stenosis. No dissection. NECK: Bones/joints: Unremarkable. No acute fracture. Soft tissues: Prominent mediastinal lymph nodes. Lung apices: Clear. CAROTID STENOSIS REFERENCE USING NASCET CRITERIA: % ICA stenosis = (1 - narrowest ICA diameter/diameter of distal cervical ICA) x 100. Mild - <50% stenosis. Moderate - 50-69% stenosis. Severe - 70-94% stenosis. Near occlusion - 95-99% stenosis. Occluded - 100% stenosis. IMPRESSION: Negative CTA neck.
[2024-04-15 01:38] VITALS: BP 126/72; PULSE 56; TEMP 97.6
[2024-04-15 02:36] LABS: Erythrocyte Sedimentation Rate 3 mm/Hr (0-20)
== END 2024-04-15 01:38 | disposition home or self-care (01) ==
LOC: EC 17:49
CPT/HCPCS: 36415; 70450; 70496; 70498; 80053; 81003; 85025; 85610; 85652; 85730; 86140; 93005; 99283

== ENCOUNTER → 2024-09-26 | Outpatient (CLI) | payer OTHER ==
[2024-09-26 13:39] LABS: Microalbumin Creatinine Ratio <34 mg/g Cr (0-30); Urine Creatinine 35.6 mg/dL (39.0-259.0)
[2024-09-26 13:47] LABS: ALT 20 U/L (10-49); AST 19 U/L (14-35); Albumin 4.5 g/dL (3.8-4.9); Albumin/Globulin Ratio 2.37 Ratio (1.60-3.17); Alkaline Phosphatase 93 U/L (41-126); Blood Urea Nitrogen 15.9 mg/dL (9.0-27.0); Calcium 9.4 mg/dL (8.7-10.3); Carbon Dioxide 26.5 mmol/L (21.6-31.8); Chloride 103 mmol/L (96-109); Chol/HDL Ratio 2.42 Ratio; Globulin 1.9 g/dL (1.6-3.3); Glucose 149 mg/dL (70-110); LDL Cholesterol,Calculated 109.9 mg/dL (0.0-131.0); Potassium 5.3 mmol/L (3.5-5.5); Sodium 139 mmol/L (135-145); Total Bilirubin 0.7 mg/dL (0.3-1.2); Total Protein 6.4 g/dL (6.2-8.2); VLDL Calculation 11.74 mg/dL (5.00-40.00)
== END | disposition home or self-care (01) ==
LOC: LABWHC1 07:55
PROVIDERS: ATTEND Internal Medicine Endocrinology, Diabetes & Metabolism
DX: E10.65 Type 1 diabetes mellitus with hyperglycemia (principal)
CPT/HCPCS: 36415; 80053; 80061; 82043; 82570; 83036; 84443